=== PATIENT | female | born 1970 | race Two or more races ===

== ENCOUNTER 2020-03-28 | Inpatient (IN) | payer BC ==
[2020-03-28] MEDS ORDERED: Labetalol 100 MG/20 ML MDV IVPUSH ONE ×2 (00:09→00:51)
--- NOTE | 2020-03-28 00:16 | EDM.PDOC ---
ED HPI GENERAL MEDICAL PROBLEM - General Stated Complaint: STROKE CODE Time Seen by Provider: 03/28/20 00:07 Source of Information: Reports: Patient History Limitations: Reports: No Limitations, Language Barrier - History of Present Illness Duration: Hour(s): (12) Location: Reports: Head, Neck Quality: Reports: Ache, Throbbing Severity: Severe Improves with: Reports: None Worsens with: Reports: None Associated Symptoms: Reports: Headaches, Other (Left-sided facial droop.) neck Pain Score (Numeric/FACES): 10 chest Pain Score (Numeric/FACES): 4 - Related Data Allergies Allergy/AdvReac Type Severity Reaction Status Date / Time No Known Allergies Allergy Verified 03/28/20 00:20 Home Meds: Home Meds Losartan [Cozaar] 0 mg PO DAILY 03/28/20 [History] hydroCHLOROthiazide [Hydrochlorothiazide] 0 mg PO DAILY 03/28/20 [History] ED ROS GENERAL - Review of Systems Review Of Systems: Comprehensive ROS is negative, except as noted in HPI. ED EXAM, NEURO - Physical Exam Exam: See Below Exam Limited By: Language Barrier General Appearance: Alert, No Apparent Distress Throat/Mouth: Normal Inspection Head Exam: Atraumatic, Normocephalic Neck: Normal Inspection, Supple, Limited Range of Motion, Other (Muscle spasm consistent with tension headache.) Respiratory/Chest: No Respiratory Distress, Lungs Clear, Normal Breath Sounds Cardiovascular: Regular Rate, Rhythm, No JVD, No Murmur GI/Abdominal: Normal Bowel Sounds, Soft, Non-Tender Neurological: Alert, Oriented x 3, Other (Sided facial droop with mild proptosis. Forehead is spared. No deviation of the tongue.) Back Exam: Normal Inspection Extremities: Normal Inspection Psychiatric: Normal Affect Skin Exam: Warm, Dry EKG INTERPRETATION Rhythm: NSR QRS: Normal ST-T: Normal Course - Vital Signs Text/Narrative:: CT scan of patient's brain shows no acute disease. EKG shows review normal sinus rhythm no ST or T wave changes. Lab work is normal. Patient's blood pressure remains very elevated. She presented with a blood pressure of 250/ 149. She received some IV labetalol 20 mg which caused her pressure to go down to 159/110. Patient blood pressure then started to rise and was 180/115 when she received a second dose of labetalol. Her pressure has not changed and is currently 173/113 at this time we are starting her on a labetalol drip. Patient will be admitted to the ICU. I am expecting an MRI scan to be done tomorrow. Patient's family is aware. Last Recorded V/S: Last Vital Signs Temp 36.6 C 03/28/20 00:07 Pulse 69 03/28/20 00:45 Resp 17 03/28/20 00:45 BP 180/115 H 03/28/20 00:45 Pulse Ox 97 03/28/20 00:45 - Orders/Labs/Meds Orders: Active Orders 24 hr Category Date Time Status Admission Status [Patient Status] [ADT] Stat ADT 03/28/20 01:34 Ordered EKG 12 Lead [EKG Documentation Completion] [RC] STAT Care 03/28/20 00:08 Active Labetalol 100 MG in Normal Saline @ 0.5 MG/MIN(100ml) Med 03/28/20 01:45 Ordered Labetalol [Normodyne] 100 mg Sodium Chloride 0.9% [Normal Saline] 80 ml IV TITRATE Medication Orders Labetalol HCl 100 mg/ Sodium (Chloride) 100 mls @ 30 mls/hr IV TITRATE JORDY; Protocol Labs: Laboratory Tests 03/28/20 03/28/20 03/28/20 Range/Units 00:03 00:03 00:03 WBC 10.31 (4.0-11.0) K/uL RBC 5.01 (4.30-5.90) M/uL Hgb 14.5 (12.0-16.0) g/dL Hct 43.0 (36.0-46.0) % MCV 85.8 (80.0-98.0) fL MCH 28.9 (27.0-32.0) pg MCHC 33.7 (31.0-37.0) g/dL RDW Std Deviation 40.0 (28.0-62.0) fl RDW Coeff of All 13 (11.0-15.0) % Plt Count 318 (150-400) K/uL MPV 10.40 (7.40-12.00) fL Neut % (Auto) 57.4 (48.0-80.0) % Lymph % (Auto) 29.5 (16.0-40.0) % [place] % (Auto) 8.9 (0.0-15.0) % Eos % (Auto) 3.7 (0.0-7.0) % Baso % (Auto) 0.5 (0.0-1.5) % Neut # (Auto) 5.9 H (1.4-5.7) K/uL Lymph # (Auto) 3.0 H (0.6-2.4) K/uL [place] # (Auto) 0.9 H (0.0-0.8) K/uL Eos # (Auto) 0.4 (0.0-0.7) K/uL Baso # (Auto) 0.1 (0.0-0.1) K/uL Nucleated RBC % 0.0 /100WBC Nucleated RBCs # 0 K/uL Sodium 138 (136-145) mmol/L Potassium 3.1 L (3.5-5.1) mmol/L Chloride 102 (98-107) mmol/L Carbon Dioxide 32.3 H (21.0-32.0) mmol/L BUN 21 H (7.0-18.0) mg/dL Creatinine 1.0 (0.6-1.0) mg/dL Est Cr Clr Drug Dosing TNP Estimated GFR (MDRD) 58.7 ml/min Glucose 98 (74-106) mg/dL Calcium 8.6 (8.5-10.1) mg/dL Total Bilirubin 0.1 L (0.2-1.0) mg/dL AST 18 (15-37) IU/L ALT 23 (14-63) IU/L Alkaline Phosphatase 80 (46-116) U/L Troponin I < 0.050 (0.000-0.056) ng/mL Total Protein 8.0 (6.4-8.2) g/dL Albumin 3.7 (3.4-5.0) g/dL Globulin 4.3 H (2.6-4.0) g/dL Albumin/Globulin Ratio 0.9 (0.9-1.6) Meds: Medications Generic Name Dose Route Start Last Admin Trade Name Freq PRN Reason Stop Dose Admin Labetalol HCl 100 mg/ Sodium 100 mls @ 30 mls/hr 03/28/20 01:45 Chloride IV TITRATE JORDY Protocol 0.5 MG/MIN Discontinued Medications Generic Name Dose Route Start Last Admin Trade Name Freq PRN Reason Stop Dose Admin Aspirin 325 mg 03/28/20 01:00 03/28/20 01:10 Aspirin PO 03/28/20 01:01 325 mg ONETIME ONE Administration Hydromorphone HCl 1 mg 03/28/20 00:51 03/28/20 01:01 Dilaudid IVPUSH 03/28/20 00:52 1 mg ONETIME ONE Administration Labetalol HCl 20 mg 03/28/20 00:09 03/28/20 00:20 Normodyne IVPUSH 03/28/20 00:10 20 mg ONETIME ONE Administration Protocol Labetalol HCl 20 mg 03/28/20 00:51 03/28/20 00:57 Normodyne IVPUSH 03/28/20 00:52 20 mg ONETIME ONE Administration Protocol Ondansetron HCl Confirm 03/28/20 01:17 03/28/20 01:32 Zofran Administered 03/28/20 01:18 Not Given Dose 4 mg .ROUTE .STK-MED ONE Ondansetron HCl 4 mg 03/28/20 01:27 03/28/20 01:32 Zofran IVPUSH 03/28/20 01:28 4 mg ONETIME ONE Administration Departure - Departure Time of Disposition: 01:42 Disposition: Admitted As Inpatient 65 Condition: Good Clinical Impression: CVA (cerebral vascular accident), Hypertensive emergency - Discharge Information Referrals: Mima Guy MD [Primary Care Provider] - Sepsis Event Note - Focused Exam Vital Signs: Vital Signs Temp Pulse Resp BP Pulse Ox 03/28/20 00:45 69 17 180/115 H 97 03/28/20 00:30 69 18 159/110 H 98 03/28/20 00:15 69 18 206/134 H 98 03/28/20 00:07 36.6 C 86 18 250/149 H 100 Date Exam was Performed: 03/28/20 Time Exam was Performed: 01:43 - My Orders Last 24 Hours: My Active Orders 03/28/20 00:08 EKG 12 Lead [EKG Documentation Completion] [RC] STAT 03/28/20 01:34 Admission Status [Patient Status] [ADT] Stat 03/28/20 01:45 Labetalol 100 MG in Normal Saline @ 0.5 MG/MIN(100ml) Labetalol [Normodyne] 100 mg Sodium Chloride 0.9% [Normal Saline] 80 ml IV TITRATE - Assessment/Plan Last 24 Hours: My Active Orders 03/28/20 00:08 EKG 12 Lead [EKG Documentation Completion] [RC] STAT 03/28/20 01:34 Admission Status [Patient Status] [ADT] Stat 03/28/20 01:45 Labetalol 100 MG in Normal Saline @ 0.5 MG/MIN(100ml) Labetalol [Normodyne] 100 mg Sodium Chloride 0.9% [Normal Saline] 80 ml IV TITRATE
--- NOTE | 2020-03-28 00:29 | CT ---
INDICATION: Stroke symptoms. Dizziness. TECHNIQUE: CT head without contrast. COMPARISON: None. FINDINGS: CSF spaces: Within normal limits for age. Brain parenchyma and extra-axial spaces: The vera-white differentiation is normal. No sign of mass, hemorrhage, or midline shift. No extra-axial fluid collection. Skull base and calvarium: The visualized paranasal sinuses and mastoid air cells demonstrate no acute or significant findings. The visualized orbits are grossly unremarkable. No skull fractures. IMPRESSION: Unremarkable noncontrast head CT. No sign of CVA or other significant finding. Please note that all CT scans at this facility use dose modulation, iterative reconstruction, and/or weight-based dosing when appropriate to reduce radiation dose to as low as reasonably achievable. Dictated by Matt Christensen MD @ Mar 28 2020 12:22AM Signed by Dr. Matt Christensen @ Mar 28 2020 12:28AM
[2020-03-28 00:32] LABS: BLOOD UREA NITROGEN,BUN 21 mg/dL (7.0-18.0); CARBON DIOXIDE,CO2 32.3 mmol/L (21.0-32.0); CHLORIDE,CL 102 mmol/L (98-107); GLUCOSE RANDOM 98 mg/dL (74-106); POTASSIUM,K 3.1 mmol/L (3.5-5.1); SODIUM,NA 138 mmol/L (136-145)
[2020-03-28] MEDS ORDERED: HYDROmorphone 2 MG/ML Syringe IVPUSH ONE (00:51)
[2020-03-28] MEDS ORDERED: Aspirin 325 MG Tab PO ONE (01:00)
[2020-03-28] MEDS ORDERED: Ondansetron 4 MG/2 ML SDV ONE ×2 (01:17→01:52)
[2020-03-28] MEDS ORDERED: Ondansetron 4 MG/2 ML SDV IVPUSH ONE ×2 (01:27→01:55)
[2020-03-28] MEDS ORDERED: Labetalol 100 MG in Sodium Chloride 0.9% 80 ML IV SCH (01:45)
[2020-03-28] MEDS ORDERED: Ondansetron 4 MG/2 ML SDV IVPUSH PRN (04:17)
[2020-03-28] MEDS ORDERED: Carboxymethylcellulose Sodium 0.5% Ophth Soln 0.4 ML UD Box of 30 EYEBOTH PRN (04:18)
[2020-03-28] MEDS ORDERED: Labetalol 100 MG/20 ML MDV IVPUSH PRN (04:20)
[2020-03-28 06:31] LABS: HEMOGLOBIN A1C 5.5 % (4.5-6.2)
[2020-03-28 06:41] LABS: BLOOD UREA NITROGEN,BUN 21 mg/dL (7.0-18.0); CARBON DIOXIDE,CO2 31.3 mmol/L (21.0-32.0); CHLORIDE,CL 100 mmol/L (98-107); GLUCOSE RANDOM 125 mg/dL (74-106); POTASSIUM,K 3.2 mmol/L (3.5-5.1); SODIUM,NA 139 mmol/L (136-145)
[2020-03-28] MEDS ORDERED: Potassium Chloride 20 MEQ Tab.ER PO ONE (07:58)
--- NOTE | 2020-03-28 08:02 | PCM.HP.2 ---
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 This started earlier in the day and has progressively worsened. She denies fevers or chills, no chest pain or SOB. No abdominal pain or dysuria. No constipation or diarrhea. She reports mild R sided neck pain that has been present for 3 or so days. She denies visual concerns. Denies swallowing concerns. No lightheadedness of dizziness. No concerns with ambulation. She denies alcohol use, no recreational drug use and no tobacco use. In the ED CBC WNL, BUN 21, Cr 1.0, K+3.1, A1c 5.5 TSH 2.38, head CT negative. BP were elevated 240/140s she was given labetalol 20 mg x 2, BP improved to 180/ 90s She was placed on telemetry and admitted for hypertensive emergency, possible TIA or CVA. 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 No organisms found. Malignancy ruled out. neck Pain Score (Numeric/FACES): 9 chest Pain Score (Numeric/FACES): 0 - Related Data Allergies/Adverse Reactions: Allergies Allergy/AdvReac Type Severity Reaction Status Date / Time No Known Allergies Allergy Verified 03/28/20 08:47 Home Medications: Home Meds Losartan [Cozaar] 100 mg PO DAILY 03/28/20 [History] hydroCHLOROthiazide [Hydrochlorothiazide] 25 mg PO DAILY 03/28/20 [History] Past Medical History HEENT History: Reports: Impaired Vision, Other (See Below) Other HEENT History: wears glasses Cardiovascular History: Reports: Hypertension. Denies: Afib, Blood Clots/VTE/ DVT, CAD, [place] Respiratory History: Reports: None, Other (See Below) (necrotizing granuloma) Genitourinary History: Reports: None. 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 Denies: CVA, TIA Psychiatric History: Reports: None Endocrine/Metabolic History: Denies: Diabetes, Type II, Obesity/BMI 30+ - Past Surgical History HEENT Surgical History: Reports: None Cardiovascular Surgical History: Reports: None Respiratory Surgical History: Reports: Lung Biopsies, Other (See Below) Other Respiratory Surgeries/Procedures: states lung biopsy came back negative Social & Family History - Family History Family Medical History: Noncontributory Cardiac: Reports: Hypertension, NV Psychiatric: Reports: Anxiety, Depression Endocrine/Metabolic: Reports: Diabetes, type II - Tobacco Use Smoking Status *Q: Never Smoker Second Hand Smoke Exposure: No - Caffeine Use Caffeine Use: Reports: Coffee - Alcohol Use Alcohol Use History: No - Recreational Drug Use Recreational Drug Use: No - Living Situation & Occupation Living situation: Reports: Occupation: Employed H&P Review of Systems - Review of Systems: Review Of Systems: See Below General: Reports: No Symptoms. Denies: Chills, Malaise, Weakness HEENT: Reports: Other (dry eye, unable to closed L eye). Denies: Eye Pain, Headaches, Visual Changes Pulmonary: Reports: No Symptoms. Denies: Shortness of Breath, Cough, Sputum Cardiovascular: Reports: No Symptoms Gastrointestinal: Reports: No Symptoms. Denies: Abdominal Pain, Black Stool, Bloody Stool, Nausea, Vomiting Genitourinary: Reports: No Symptoms. Denies: Dysuria, Frequency Musculoskeletal: Reports: Neck Pain (r sided lateral neck pain). Denies: Shoulder Pain, Back Pain Neurological: Denies: Change in Speech Hematologic/Lymphatic: Reports: No Symptoms Immunologic: Reports: No Symptoms Exam - Exam Exam: See Below - Vital Signs Vital Signs: Last Vital Signs Temp 97.3 F 03/28/20 07:41 Pulse 72 03/28/20 07:41 Resp 16 03/28/20 07:41 BP 106/56 L 03/28/20 07:41 Pulse Ox 95 03/28/20 07:41 Weight: 65.7 kg - Exam General: Alert, Oriented, Cooperative HEENT: Conjunctiva Clear, Posterior Pharynx Clear, Pupils Reactive, Other ( unable to blink L eye or close left eye) Lungs: Clear to Auscultation, Normal Respiratory Effort Cardiovascular: Regular Rate, Regular Rhythm, Normal S1, Normal S2. No: Systolic Murmur GI/Abdominal Exam: Normal Bowel Sounds, Soft, Non-Tender Extremities: Normal Inspection, Normal Range of Motion, Non-Tender, No Pedal Edema Neurological: Strength Equal Bilateral, Normal Gait, Normal Speech Neuro Extensive - Mental Status: Alert, Oriented x3, Normal Mood/Affect Neuro Extensive - Motor, Sensory, Reflexes: Normal Gait, Facial palsy (L) Psychiatric: Alert, Normal Affect, Normal Mood - Patient Data Lab Results Last 24 hrs: Laboratory Results - last 24 hr 03/28/20 03/28/20 03/28/20 Range/Units 00:03 00:03 00:03 WBC 10.31 (4.0-11.0) K/uL RBC 5.01 (4.30-5.90) M/uL Hgb 14.5 (12.0-16.0) g/dL Hct 43.0 (36.0-46.0) % MCV 85.8 (80.0-98.0) fL MCH 28.9 (27.0-32.0) pg MCHC 33.7 (31.0-37.0) g/dL RDW Std Deviation 40.0 (28.0-62.0) fl RDW Coeff of All 13 (11.0-15.0) % Plt Count 318 (150-400) K/uL MPV 10.40 (7.40-12.00) fL Neut % (Auto) 57.4 (48.0-80.0) % Lymph % (Auto) 29.5 (16.0-40.0) % [place] % (Auto) 8.9 (0.0-15.0) % Eos % (Auto) 3.7 (0.0-7.0) % Baso % (Auto) 0.5 (0.0-1.5) % Neut # (Auto) 5.9 H (1.4-5.7) K/uL Lymph # (Auto) 3.0 H (0.6-2.4) K/uL [place] # (Auto) 0.9 H (0.0-0.8) K/uL Eos # (Auto) 0.4 (0.0-0.7) K/uL Baso # (Auto) 0.1 (0.0-0.1) K/uL Nucleated RBC % 0.0 /100WBC Nucleated RBCs # 0 K/uL Sodium 138 (136-145) mmol/L Potassium 3.1 L (3.5-5.1) mmol/L Chloride 102 (98-107) mmol/L Carbon Dioxide 32.3 H (21.0-32.0) mmol/L BUN 21 H (7.0-18.0) mg/dL Creatinine 1.0 (0.6-1.0) mg/dL Est Cr Clr Drug Dosing TNP Estimated GFR (MDRD) 58.7 ml/min Glucose 98 (74-106) mg/dL Hemoglobin A1c (4.5-6.2) % Calcium 8.6 (8.5-10.1) mg/dL Phosphorus (2.6-4.7) mg/dL Magnesium (1.8-2.4) mg/dL Total Bilirubin 0.1 L (0.2-1.0) mg/dL AST 18 (15-37) IU/L ALT 23 (14-63) IU/L Alkaline Phosphatase 80 (46-116) U/L Troponin I < 0.050 (0.000-0.056) ng/mL Total Protein 8.0 (6.4-8.2) g/dL Albumin 3.7 (3.4-5.0) g/dL Globulin 4.3 H (2.6-4.0) g/dL Albumin/Globulin Ratio 0.9 (0.9-1.6) TSH 3rd Generation (0.36-3.74) uIU/mL 03/28/20 03/28/20 03/28/20 Range/Units 06:03 06:03 06:03 WBC 12.01 H (4.0-11.0) K/uL RBC 4.73 (4.30-5.90) M/uL Hgb 13.6 (12.0-16.0) g/dL Hct 40.4 (36.0-46.0) % MCV 85.4 (80.0-98.0) fL MCH 28.8 (27.0-32.0) pg MCHC 33.7 (31.0-37.0) g/dL RDW Std Deviation 39.6 (28.0-62.0) fl RDW Coeff of All 13 (11.0-15.0) % Plt Count 311 (150-400) K/uL MPV 10.30 (7.40-12.00) fL Neut % (Auto) 85.5 H (48.0-80.0) % Lymph % (Auto) 11.1 L (16.0-40.0) % [place]on % (Auto) 2.8 (0.0-15.0) % Eos % (Auto) 0.4 (0.0-7.0) % Baso % (Auto) 0.2 (0.0-1.5) % Neut # (Auto) 10.3 H (1.4-5.7) K/uL Lymph # (Auto) 1.3 (0.6-2.4) K/uL [place]on # (Auto) 0.3 (0.0-0.8) K/uL Eos # (Auto) 0.1 (0.0-0.7) K/uL Baso # (Auto) 0.0 (0.0-0.1) K/uL Nucleated RBC % 0.0 /100WBC Nucleated RBCs # 0 K/uL Sodium 139 (136-145) mmol/L Potassium 3.2 L (3.5-5.1) mmol/L Chloride 100 (98-107) mmol/L Carbon Dioxide 31.3 (21.0-32.0) mmol/L BUN 21 H (7.0-18.0) mg/dL Creatinine 0.9 (0.6-1.0) mg/dL Est Cr Clr Drug Dosing 53.71 Estimated GFR (MDRD) > 60.0 ml/min Glucose 125 H (74-106) mg/dL Hemoglobin A1c 5.5 (4.5-6.2) % Calcium 8.6 (8.5-10.1) mg/dL Phosphorus 4.2 (2.6-4.7) mg/dL Magnesium 2.2 (1.8-2.4) mg/dL Total Bilirubin (0.2-1.0) mg/dL AST (15-37) IU/L ALT (14-63) IU/L Alkaline Phosphatase (46-116) U/L Troponin I (0.000-0.056) ng/mL Total Protein (6.4-8.2) g/dL Albumin (3.4-5.0) g/dL Globulin (2.6-4.0) g/dL Albumin/Globulin Ratio (0.9-1.6) TSH 3rd Generation 2.38 (0.36-3.74) uIU/mL Result Diagrams: 03/28/20 06:03 03/28/20 06:03 Sepsis Event Note - Evaluation Sepsis Screening Result: No Definite Risk - Focused Exam Vital Signs: Vital Signs Temp Pulse Resp BP Pulse Ox 03/28/20 07:41 97.3 F 72 16 106/56 L 95 03/28/20 06:07 98.2 F 67 16 127/77 92 L 03/28/20 05:21 74 17 120/73 95 03/28/20 05:20 97 03/28/20 04:00 97.5 F 64 18 181/97 H 95 03/28/20 03:25 97.5 F 60 18 165/94 H 95 03/28/20 02:45 62 17 155/103 H 96 03/28/20 02:30 64 18 175/115 H 97 03/28/20 02:15 58 L 17 142/101 H 96 03/28/20 02:00 60 17 142/99 H 96 03/28/20 01:45 61 17 145/97 H 96 03/28/20 01:30 63 17 151/106 H 96 03/28/20 01:15 66 17 176/113 H 96 03/28/20 01:00 78 18 159/113 H 97 03/28/20 00:45 69 17 180/115 H 97 03/28/20 00:30 69 18 159/110 H 98 03/28/20 00:15 69 18 206/134 H 98 03/28/20 00:07 98 F 86 18 250/149 H 100 Date Exam was Performed: 03/28/20 Time Exam was Performed: 11:02 - Problem List (1) HTN (hypertension) SNOMED Code(s): 97745561 ICD Code: I10 - ESSENTIAL (PRIMARY) HYPERTENSION Status: Acute Current Visit: Yes (2) TIA (transient ischemic attack) SNOMED Code(s): 246777721 ICD Code: G45.9 - TRANSIENT CEREBRAL ISCHEMIC ATTACK, UNSPECIFIED Status: Suspected Current Visit: Yes (3) Hypertensive emergency SNOMED Code(s): 849312260897622 ICD Code: I16.1 - HYPERTENSIVE EMERGENCY Status: Acute Current Visit: Yes (4) Hypokalemia SNOMED Code(s): 09872730 ICD Code: E87.6 - HYPOKALEMIA Status: Acute Current Visit: Yes Problem List Initiated/Reviewed/Updated: Yes Orders Last 24hrs: Active Orders 24 hr Category Date Time Status Admission Status [Patient Status] [ADT] Stat ADT 03/28/20 01:34 Active Activity as Tolerated [RC] .Routine Care 03/28/20 04:26 Active Oxygen Therapy [RC] PRN Care 03/28/20 04:27 Active Pulse Oximetry [RC] PRN Care 03/28/20 04:28 Active Swallow Screen [Nursing Bedside Swallow Screen] [RC] Care 03/28/20 08:01 Ordered ASDIRECTED Telemetry Monitoring [Cardiac Monitoring] [RC] Q8H Care 03/28/20 02:40 Active Vital Signs [RC] Q4HR Care 03/28/20 04:25 Active Clear Liquid Diet [DIET] Diet 03/28/20 Breakfast Active Ang Head wo Cont [MR] Urgent Exams 03/28/20 07:52 Ordered Ang Neck w Cont [MR] Urgent Exams 03/28/20 07:52 Ordered Brain w wo Cont [MR] Urgent Exams 03/28/20 07:52 Ordered Brain wo Cont [MR] Routine Exams 03/28/20 04:30 Stop Req Echo Comp wo Cont [US] Routine Exams 03/28/20 04:24 Ordered MRA Head Without Contrast [Ang Head wo Cont] [MR] Exams 03/28/20 04:28 Stop Req Routine CORONAVIRUS COVID-19 PCR PHL Urgent Lab 03/28/20 07:58 Ordered LIPID PANEL [CHEM] Routine Lab 03/28/20 07:54 Ordered Aspirin Med 03/28/20 09:00 Ordered 81 mg PO DAILY Carboxymethylcellulose Sodium [Refresh Plus 0.5%] Med 03/28/20 04:18 Active 1 each EYEBOTH BID PRN Labetalol [Normodyne] Med 03/28/20 04:20 Active 10 mg IVPUSH Q4H PRN Ondansetron [Zofran] Med 03/28/20 04:17 Active 4 mg IVPUSH Q4H PRN Medication Orders Artificial Tears (Refresh Plus 0.5%) 1 each EYEBOTH BID PRN PRN Reason: Dry Eyes Last Admin: 03/28/20 05:35 Dose: 1 each Aspirin (Aspirin) 81 mg PO DAILY JORDY Labetalol HCl (Normodyne) 10 mg IVPUSH Q4H PRN PRN Reason: Hypertension Ondansetron HCl (Zofran) 4 mg IVPUSH Q4H PRN PRN Reason: Nausea/Vomiting Assessment/Plan Comment:: THis 49 year old female admitted with hypertensive urgency, possible TIA, CVA to be ruled out. 1. L sided facial numbness tingling, TIA and rule out CVA - Head CT negative - MRI brain and MRA head and neck to be obtained today - TTE pending - Lipid panel revealed Total cholesterol 198, LDL 141, HDL 45 triglycerides 61 - A1c 5.5 - TSH 2.38 - Permissive HTN, Labetalol PRN for BP over 180/100 - COVID-19- negative - Consult Dr Marrufo, Neurology to evaluate - Consult ST due to tongue numbness. No swallowing concerns. - No need for PT/OT evaluations as she is not having difficulty with limb weakness or gait instability - Non-smoker 2. HTN: - Improved, allowing permissive HTN for now. Hold Losartan and HCTZ 3. Hypokalemia: - replace PO today, recheck in am. VTE prophylaxis: SCDs Dispo: 1-2 days pending improvement and evaluations - Mortality Measure Prognosis:: Good
[2020-03-28] MEDS ORDERED: Sodium Chloride 0.9% 2.5 ML Syringe FLUSH PRN (08:03)
[2020-03-28] MEDS ORDERED: Sodium Chloride 0.9% 10 ML Syringe FLUSH PRN (08:03)
[2020-03-28] MEDS ORDERED: Hydrochlorothiazide 25 MG Tab PO SCH (09:00)
[2020-03-28] MEDS ORDERED: Losartan 50 MG Tab PO SCH (09:00)
[2020-03-28] MEDS ORDERED: Gadobenate Dimeglumine 529 MG/ML 20 ML SDV IVPUSH STA (09:13)
[2020-03-28] MEDS: Aspirin 81 MG Tab.Chew PO SCH (10:17)
[2020-03-28] MEDS: Acetaminophen 325 MG Tab PO PRN ×2 (10:46→15:08)
--- NOTE | 2020-03-28 11:14 | MR ---
MR angiogram of neck Technique: MR angiogram study was obtained centered to the neck. Intravenous contrast was utilized. Findings: Brachiocephalic and subclavian arteries appear patent. Common carotid arteries are patent on both sides. Internal carotid arteries show no focal stenosis. Bandlike defect is noted within the left proximal external carotid artery which is most likely artifact. Left external carotid artery is otherwise unremarkable. Right external carotid artery appears normal. Vertebral arteries are patent into the basilar artery. Impression: 1. Bandlike defect within the proximal left external carotid artery which is most likely artifact. 2. Other portions of the MR angiogram study of the neck appear unremarkable. Diagnostic code #2 This report was dictated in MDT
--- NOTE | 2020-03-28 11:22 | MR ---
MR angiogram of brain Technique: Multiple T2 MR angiogram sequences were obtained centered of the [place]. Multiple MIP images were then obtained. Findings: Basilar artery and posterior cerebral arteries are patent. Distal internal carotid arteries are patent. Proximal left middle cerebral artery shows some narrowing up to about 90 percent. There is an equivocal area of mass-effect at this level measuring about 4 mm. Difficult to exclude a thrombosed aneurysm or treated aneurysm. Other portions of the middle cerebral artery are patent. Internal cerebral arteries are patent. Impression: 1. Focal narrowing within the proximal left middle cerebral artery up to about 90 percent. Small equivocal adjacent finding measuring 4 mm. Difficult to exclude a thrombosed aneurysm or treated aneurysm. This may also be artifact. If patient's clinical symptoms remain stable, recommend follow-up study in one month to see if findings persist. 2. Other portions of the MR angiogram study appear unremarkable which are centered to the [place]. Diagnostic code #3 This report was dictated in MDT
--- NOTE | 2020-03-28 11:34 | MR ---
MRI brain (without and with intravenous contrast) Technique: T1 sagittal and coronal; T1, T2, FLAIR and diffusion axial; T1 fat-suppressed postcontrast axial, sagittal and coronal images were obtained. Comparison: Previous correlated with previous MR angiogram study performed on the same day as well as head CT exam of 03/28/20. Findings: Ventricles along with basal cisterns and sulci over the convexities are within normal limits for the patient's age. Normal signal void is seen within the major cerebral arteries within the skull base. No discrete abnormality is appreciated in the area of narrowing within the proximal left middle cerebral artery as noted on the MR angiogram study. Nothing is seen to correlate to a thrombosed or treated aneurysm. Area of narrowing within the proximal left middle cerebral artery seen on previous MR angiogram is most likely due to atherosclerotic change. Small areas of increased signal are scattered within the subcortical and periventricular white matter most likely representing minimal small vessel ischemic demyelination change. No other abnormal signal is seen within the brain parenchyma. No acute diffusion abnormalities are seen. No abnormal enhancement is seen within the brain parenchyma. Impression: 1. Minimal areas of increased signal within the subcortical and periventricular white matter most likely due to minimal small vessel ischemic demyelination change. 2. No findings are seen on this exam to indicate thrombosed aneurysm or treated aneurysm next to the proximal left middle cerebral artery as questioned on MR angiogram study. Narrowing on MR angiogram study is most likely due to atherosclerotic change although repeat MR angiogram study of the brain could be considered to confirm findings persist as a real stenosis. 3. No additional abnormality is seen on MR angiogram study of the brain. Diagnostic code #3 This report was dictated in MDT
--- NOTE | 2020-03-28 12:54 | PCM.CONS ---
H&P History of Present Illness - General Date of Service: 03/28/20 Admit Problem/Dx: Admission Diagnosis/Problem Admission Diagnosis/Problem Hypertension Source of Information: Patient History Limitations: Reports: Language Barrier - History of Present Illness Initial Comments - Free Text/Narative: Prior to coming to the ED, she had been having pain in the neck vein on the right side (points to posterior lateral neck). She endorses having had this before associated with high blood pressure. Yesterday, she had nausea. Yesterday afternoon, she developed droop on the left side of her face. Today, she notes that she is drooling on the left side of her mouth. Her left eye is painful/dry. No recent fevers, chills, cough, SOB, ear pain, rash. In ED, BP were 240s/140 Medical history includes HTN. Her father had DE. No tobacco use. Labs 03/28/2020 LDL 141, TSH 2.38, A1c 5.5 MRA head and neck gap in signal in the left MCA, artifact vs. stenosis, MRI brain nonspecific T2 hyperintense foci likely mild small vessel changes neck Pain Score (Numeric/FACES): 9 chest Pain Score (Numeric/FACES): 0 - Related Data Allergies/Adverse Reactions: Allergies Allergy/AdvReac Type Severity Reaction Status Date / Time No Known Allergies Allergy Verified 03/28/20 08:47 Home Medications: Home Meds Losartan [Cozaar] 100 mg PO DAILY 03/28/20 [History] hydroCHLOROthiazide [Hydrochlorothiazide] 25 mg PO DAILY 03/28/20 [History] Past Medical History HEENT History: Reports: Impaired Vision, Other (See Below) Other HEENT History: wears glasses Cardiovascular History: Reports: Hypertension. Denies: Afib, Blood Clots/VTE/ DVT, CAD, DE Respiratory History: Reports: None, Other (See Below) (necrotizing granuloma) Genitourinary History: Reports: None. 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 Denies: CVA, TIA Psychiatric History: Reports: None Endocrine/Metabolic History: Denies: Diabetes, Type II, Obesity/BMI 30+ - Past Surgical History HEENT Surgical History: Reports: None Cardiovascular Surgical History: Reports: None Respiratory Surgical History: Reports: Lung Biopsies, Other (See Below) Other Respiratory Surgeries/Procedures: states lung biopsy came back negative Social & Family History - Family History Family Medical History: Noncontributory Cardiac: Reports: Hypertension, DE Psychiatric: Reports: Anxiety, Depression Endocrine/Metabolic: Reports: Diabetes, type II - Tobacco Use Smoking Status *Q: Never Smoker Second Hand Smoke Exposure: No - Caffeine Use Caffeine Use: Reports: Coffee - Recreational Drug Use Recreational Drug Use: No - Living Situation & Occupation Living situation: Reports: Occupation: Employed H&P Review of Systems - Review of Systems: Review Of Systems: Comprehensive ROS is negative, except as noted in HPI. Exam - Exam Exam: See Below - Vital Signs Vital Signs: Last Vital Signs Temp 36.6 C 03/28/20 10:20 Pulse 65 03/28/20 10:20 Resp 16 03/28/20 10:20 BP 160/96 H 03/28/20 10:20 Pulse Ox 97 03/28/20 10:20 Weight: 65.7 kg - Exam Physical Exam Comments:: Constitutional: No acute distress Psychiatric: Mood/Affect: normal/appropriate Neurological: Mental Status: General: Normal activity, good hygiene, appropriate appearance. Level of consciousness: Awake, alert. Orientation: Oriented to person, place, time and situation. Concentration/Attention Span: Normal. Comprehension/Praxis: Able to perform a three step command. Fund of Knowledge/memory: Adequate recent and remote recall. Language: Fluent, some comprehension difficulties suspected due to Sinhala not first language. Thought Content: Normal. Insight/Judgement: Normal. Cranial Nerves: Pupils equally round and reactive to light. Visual louis full to confrontation. Gaze conjugate, EOMI. Sensation intact and symmetric to light touch. Left facial weakness moderate eye closure weakness, asymmetric forehead lines, mild droop left angle of mouth and incomplete closure when drinking from straw. . Palate elevates symmetrically. Normal shrug bilaterally. Tongue protrudes midline Motor: Normal tone in all groups. No drift. Power is 5/5 throughout proximal and distal muscles. Sensation: Sensation is intact to pinprick, vibratory sense and proprioception. Coordination: Finger to nose, heel to peoples and rapid alternating movements are intact. Gait: Normal gait Eyes: non icteric, Mouth: moist mucus membranes Cardiovascular: RRR Respiratory: clear lungs Skin: no visible rash - Patient Data Lab Results Last 24 hrs: Laboratory Results - last 24 hr 03/28/20 03/28/20 03/28/20 Range/Units 00:03 00:03 00:03 WBC 10.31 (4.0-11.0) K/uL RBC 5.01 (4.30-5.90) M/uL Hgb 14.5 (12.0-16.0) g/dL Hct 43.0 (36.0-46.0) % MCV 85.8 (80.0-98.0) fL MCH 28.9 (27.0-32.0) pg MCHC 33.7 (31.0-37.0) g/dL RDW Std Deviation 40.0 (28.0-62.0) fl RDW Coeff of All 13 (11.0-15.0) % Plt Count 318 (150-400) K/uL MPV 10.40 (7.40-12.00) fL Neut % (Auto) 57.4 (48.0-80.0) % Lymph % (Auto) 29.5 (16.0-40.0) % [place] % (Auto) 8.9 (0.0-15.0) % Eos % (Auto) 3.7 (0.0-7.0) % Baso % (Auto) 0.5 (0.0-1.5) % Neut # (Auto) 5.9 H (1.4-5.7) K/uL Lymph # (Auto) 3.0 H (0.6-2.4) K/uL [place] # (Auto) 0.9 H (0.0-0.8) K/uL Eos # (Auto) 0.4 (0.0-0.7) K/uL Baso # (Auto) 0.1 (0.0-0.1) K/uL Nucleated RBC % 0.0 /100WBC Nucleated RBCs # 0 K/uL Sodium 138 (136-145) mmol/L Potassium 3.1 L (3.5-5.1) mmol/L Chloride 102 (98-107) mmol/L Carbon Dioxide 32.3 H (21.0-32.0) mmol/L BUN 21 H (7.0-18.0) mg/dL Creatinine 1.0 (0.6-1.0) mg/dL Est Cr Clr Drug Dosing TNP Estimated GFR (MDRD) 58.7 ml/min Glucose 98 (74-106) mg/dL Hemoglobin A1c (4.5-6.2) % Calcium 8.6 (8.5-10.1) mg/dL Phosphorus (2.6-4.7) mg/dL Magnesium (1.8-2.4) mg/dL Total Bilirubin 0.1 L (0.2-1.0) mg/dL AST 18 (15-37) IU/L ALT 23 (14-63) IU/L Alkaline Phosphatase 80 (46-116) U/L Troponin I < 0.050 (0.000-0.056) ng/mL Total Protein 8.0 (6.4-8.2) g/dL Albumin 3.7 (3.4-5.0) g/dL Globulin 4.3 H (2.6-4.0) g/dL Albumin/Globulin Ratio 0.9 (0.9-1.6) Triglycerides (0-200) mg/dL Cholesterol (50-200) mg/dL LDL Cholesterol, Calc (60-180) mg/dL VLDL Cholesterol (5-55) mg/dL HDL Cholesterol (40-60) mg/dL Cholesterol/HDL Ratio (3.3-6.0) TSH 3rd Generation (0.36-3.74) uIU/mL SARS-CoV-2 RNA (RT-PCR) (NEGATIVE) 03/28/20 03/28/20 03/28/20 Range/Units 06:03 06:03 06:03 WBC 12.01 H (4.0-11.0) K/uL RBC 4.73 (4.30-5.90) M/uL Hgb 13.6 (12.0-16.0) g/dL Hct 40.4 (36.0-46.0) % MCV 85.4 (80.0-98.0) fL MCH 28.8 (27.0-32.0) pg MCHC 33.7 (31.0-37.0) g/dL RDW Std Deviation 39.6 (28.0-62.0) fl RDW Coeff of All 13 (11.0-15.0) % Plt Count 311 (150-400) K/uL MPV 10.30 (7.40-12.00) fL Neut % (Auto) 85.5 H (48.0-80.0) % Lymph % (Auto) 11.1 L (16.0-40.0) % [place] % (Auto) 2.8 (0.0-15.0) % Eos % (Auto) 0.4 (0.0-7.0) % Baso % (Auto) 0.2 (0.0-1.5) % Neut # (Auto) 10.3 H (1.4-5.7) K/uL Lymph # (Auto) 1.3 (0.6-2.4) K/uL [place] # (Auto) 0.3 (0.0-0.8) K/uL Eos # (Auto) 0.1 (0.0-0.7) K/uL Baso # (Auto) 0.0 (0.0-0.1) K/uL Nucleated RBC % 0.0 /100WBC Nucleated RBCs # 0 K/uL Sodium 139 (136-145) mmol/L Potassium 3.2 L (3.5-5.1) mmol/L Chloride 100 (98-107) mmol/L Carbon Dioxide 31.3 (21.0-32.0) mmol/L BUN 21 H (7.0-18.0) mg/dL Creatinine 0.9 (0.6-1.0) mg/dL Est Cr Clr Drug Dosing 53.71 Estimated GFR (MDRD) > 60.0 ml/min Glucose 125 H (74-106) mg/dL Hemoglobin A1c 5.5 (4.5-6.2) % Calcium 8.6 (8.5-10.1) mg/dL Phosphorus 4.2 (2.6-4.7) mg/dL Magnesium 2.2 (1.8-2.4) mg/dL Total Bilirubin (0.2-1.0) mg/dL AST (15-37) IU/L ALT (14-63) IU/L Alkaline Phosphatase (46-116) U/L Troponin I (0.000-0.056) ng/mL Total Protein (6.4-8.2) g/dL Albumin (3.4-5.0) g/dL Globulin (2.6-4.0) g/dL Albumin/Globulin Ratio (0.9-1.6) Triglycerides (0-200) mg/dL Cholesterol (50-200) mg/dL LDL Cholesterol, Calc (60-180) mg/dL VLDL Cholesterol (5-55) mg/dL HDL Cholesterol (40-60) mg/dL Cholesterol/HDL Ratio (3.3-6.0) TSH 3rd Generation 2.38 (0.36-3.74) uIU/mL SARS-CoV-2 RNA (RT-PCR) (NEGATIVE) 03/28/20 03/28/20 Range/Units 06:03 10:10 WBC (4.0-11.0) K/uL RBC (4.30-5.90) M/uL Hgb (12.0-16.0) g/dL Hct (36.0-46.0) % MCV (80.0-98.0) fL MCH (27.0-32.0) pg MCHC (31.0-37.0) g/dL RDW Std Deviation (28.0-62.0) fl RDW Coeff of All (11.0-15.0) % Plt Count (150-400) K/uL MPV (7.40-12.00) fL Neut % (Auto) (48.0-80.0) % Lymph % (Auto) (16.0-40.0) % [place] % (Auto) (0.0-15.0) % Eos % (Auto) (0.0-7.0) % Baso % (Auto) (0.0-1.5) % Neut # (Auto) (1.4-5.7) K/uL Lymph # (Auto) (0.6-2.4) K/uL [place] # (Auto) (0.0-0.8) K/uL Eos # (Auto) (0.0-0.7) K/uL Baso # (Auto) (0.0-0.1) K/uL Nucleated RBC % /100WBC Nucleated RBCs # K/uL Sodium (136-145) mmol/L Potassium (3.5-5.1) mmol/L Chloride (98-107) mmol/L Carbon Dioxide (21.0-32.0) mmol/L BUN (7.0-18.0) mg/dL Creatinine (0.6-1.0) mg/dL Est Cr Clr Drug Dosing Estimated GFR (MDRD) ml/min Glucose (74-106) mg/dL Hemoglobin A1c (4.5-6.2) % Calcium (8.5-10.1) mg/dL Phosphorus (2.6-4.7) mg/dL Magnesium (1.8-2.4) mg/dL Total Bilirubin (0.2-1.0) mg/dL AST (15-37) IU/L ALT (14-63) IU/L Alkaline Phosphatase (46-116) U/L Troponin I (0.000-0.056) ng/mL Total Protein (6.4-8.2) g/dL Albumin (3.4-5.0) g/dL Globulin (2.6-4.0) g/dL Albumin/Globulin Ratio (0.9-1.6) Triglycerides 61 (0-200) mg/dL Cholesterol 198 (50-200) mg/dL LDL Cholesterol, Calc 141 (60-180) mg/dL VLDL Cholesterol 12 (5-55) mg/dL HDL Cholesterol 45 (40-60) mg/dL Cholesterol/HDL Ratio 4.4 (3.3-6.0) TSH 3rd Generation (0.36-3.74) uIU/mL SARS-CoV-2 RNA (RT-PCR) NEGATIVE (NEGATIVE) Result Diagrams: 03/28/20 06:03 03/28/20 06:03 Sepsis Event Note - Evaluation Sepsis Screening Result: No Definite Risk - Focused Exam Vital Signs: Vital Signs Temp Pulse Resp BP Pulse Ox 03/28/20 10:20 36.6 C 65 16 160/96 H 97 03/28/20 07:41 36.3 C 72 16 106/56 L 95 03/28/20 06:07 36.8 C 67 16 127/77 92 L 03/28/20 05:21 74 17 120/73 95 03/28/20 05:20 97 03/28/20 04:00 36.4 C 64 18 181/97 H 95 03/28/20 03:25 36.4 C 60 18 165/94 H 95 03/28/20 02:45 62 17 155/103 H 96 03/28/20 02:30 64 18 175/115 H 97 03/28/20 02:15 58 L 17 142/101 H 96 03/28/20 02:00 60 17 142/99 H 96 03/28/20 01:45 61 17 145/97 H 96 03/28/20 01:30 63 17 151/106 H 96 03/28/20 01:15 66 17 176/113 H 96 03/28/20 01:00 78 18 159/113 H 97 Date Exam was Performed: 03/28/20 Time Exam was Performed: 12:49 Consult PN Assessment/Plan (1) 7th nerve palsy SNOMED Code(s): 012918617 Code(s): G51.0 - WHIPPLE'S PALSY Current Visit: Yes Assessment:: Impression: Acute left facial weakness: Pattern of weakness most consistent with 7th nerve palsy. MRI brain negative for acute stroke. Neck pain, severe hypertension This would not directly be explained by Allen palsy, but by history, this is a recurrent problem, perhaps provoked by viral infection responsible for left 7th nerve palsy. MRA finding on L MCA artifact vs. focal stenosis. This would not explain symptoms, but CTA is recommended to assess for stenosis as this would be indication for antiplatelet and statin Recommendations: Course of steroids for Allen palsy with close BP monitoring Eye patch and drops for left eye. CTA head Problem List Initiated/Reviewed/Updated: Yes
[2020-03-28] MEDS: Carboxymethylcellulose Sodium 0.5% Ophth Soln 0.4 ML UD Box of 30 EYELF SCH ×3 (13:21→21:06)
[2020-03-28] MEDS ORDERED: Iopamidol 755 Mg/ML 100 ML Bottle IVPUSH ONE (13:23)
--- NOTE | 2020-03-28 13:41 | US ---
Renal arterial ultrasound: Duplex and color Doppler evaluation of the renal arteries was performed as well as multiple real-time images of the kidneys. Technologist's note: Very limited exam due to increased gas Comparison: No prior renal imaging. Findings: Maximum systolic velocity measurement within the right renal artery is proximally at 1.50 m/s. Maximum systolic velocity measurement within the left renal artery is mid at 1.23 m/s. Resistivity indices are normal within both kidneys. Kidneys show no hydronephrosis or discrete mass. Right kidney length is 10.6 cm and left kidney length is 10.9 cm. Impression: 1. Somewhat limited study as noted above. 2. Nothing appreciated to indicate hemodynamic significant stenosis within either renal artery. 3. Normal resistivity indices. Diagnostic code #2 This report was dictated in MDT
--- NOTE | 2020-03-28 13:46 | CT ---
CT angiogram of brain Technique: Multiple axial sections through the brain were obtained. Intravenous contrast was utilized. Multiple MIP images were obtained. Comparison: Prior MRI angiogram study performed earlier on same day (9:19 AM) Findings: Proximal left middle cerebral artery shows mild narrowing which does not appear as severe as seen on MR angiogram study. This narrowing is around 50 percent. Middle cerebral arteries as well as anterior and posterior cerebral arteries are otherwise patent. No focal stenosis is seen. Impression: 1. Mild narrowing of the proximal left middle cerebral artery appearing less severe than seen on MR angiogram study. Narrowing is around [address] exam. 2. Other portions of the CT angiogram of the brain appear unremarkable. Diagnostic code #2 This report was dictated in MDT
[2020-03-28] MEDS: Losartan 50 MG Tab PO SCH (15:08)
[2020-03-28] MEDS ORDERED: Ibuprofen 400 MG Tab PO PRN (16:13)
[2020-03-28] MEDS: Ciprofloxacin/Dexamethasone 0.3-0.1% Otic Susp 7.5 ML Bottle EARLF SCH ×2 (17:46→21:14)
[2020-03-28] MEDS ORDERED: atorvaSTATin 40 MG Tab PO SCH (21:00)
[2020-03-29] MEDS: Carboxymethylcellulose Sodium 0.5% Ophth Soln 0.4 ML UD Box of 30 EYELF SCH ×4 (01:32→12:18)
[2020-03-29 05:45] LABS: CARBON DIOXIDE,CO2 27.5 mmol/L (21.0-32.0); POTASSIUM,K 3.5 mmol/L (3.5-5.1)
[2020-03-29] MEDS ORDERED: predniSONE 20 MG Tab PO SCH (08:00)
[2020-03-29] MEDS: Losartan 50 MG Tab PO SCH (08:34)
[2020-03-29] MEDS: Aspirin 81 MG Tab.Chew PO SCH (08:35)
[2020-03-29] MEDS: Ciprofloxacin/Dexamethasone 0.3-0.1% Otic Susp 7.5 ML Bottle EARLF SCH (09:25)
--- NOTE | 2020-03-29 09:55 | PCM.DCSUM1 ---
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 This started earlier in the day and has progressively worsened. She denies fevers or chills, no chest pain or SOB. No abdominal pain or dysuria. No constipation or diarrhea. She reports mild R sided neck pain that has been present for 3 or so days. She denies visual concerns. Denies swallowing concerns. No lightheadedness of dizziness. No concerns with ambulation. She denies alcohol use, no recreational drug use and no tobacco use. In the ED CBC WNL, BUN 21, Cr 1.0, K+3.1, A1c 5.5 TSH 2.38, head CT negative. BP were elevated 240/140s she was given labetalol 20 mg x 2, BP improved to 180/90s She was placed on telemetry and admitted for hypertensive emergency, possible TIA or CVA. 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 No organisms found. Malignancy ruled out. Diagnosis: Stroke: No - Discharge Data Discharge Date: 03/29/20 Discharge Disposition: Home, Self-Care 01 Condition: Good - Referral to Home Health Primary Care Physician: Mima Guy MD - Discharge Diagnosis/Problem(s) (1) HTN (hypertension) SNOMED Code(s): 38343110 ICD Code: I10 - ESSENTIAL (PRIMARY) HYPERTENSION Status: Acute Current Visit: Yes (2) Hypokalemia SNOMED Code(s): 64329587 ICD Code: E87.6 - HYPOKALEMIA Status: Acute Current Visit: Yes (3) 7th nerve palsy SNOMED Code(s): 957919642 ICD Code: G51.0 - JOHNSON'S PALSY Status: Acute Current Visit: Yes - Patient Summary/Data Consults: Consultations 03/28/20 11:06 Consult to Speech Language Pathology [FINANCIAL SERVICES ASSOCIATE Evaluation and Treatment] [CONS] Routine 03/28/20 11:17 Consult to Physician [CONS] Routine Hospital Course: Admitting Diagnoses: L facial numbness TIA/CVA Hypertensive emergency Discharge Diagnoses: Landing palsy L MCA narrowing less than 50% HTN Dyslipidemia Lluvia was admitted with hypertensive emergency and suspected TIA/CVA. She was thoroughly evaluated for CVA with MRI brain and MRA head and neck. Along with ECHO. MRIs returned negative for CVA. Facial palsy noted, likely bells palsy. Dr Marrufo, Neurology, consulted and confirmed this. Recommended Prednisone x 1 week. MRA of head did show some narrowing of L MCA, CTA obtained to further evaluated due to concern with artifact. CTA revealed less than 50 % narrowing. Dr Marrufo recommended Statin therapy along with aspirin and good BP control. Lluvia was counseled on this and she understands. Due to severely elevated blood pressure on arrival 24 hour urine for catecholamines. Renal duplex obtained, which was negative for stenosis. She was restarted on Losartan and HCTZ, blood pressure has remained quite stable. She was counseled on being complaint on taking medications daily. She will be discharged home today, she was counseled on eye protection and artificial tears for moisture. 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 Eye patch to be worn at night and safety glasses during the day. She was counseled on when to expect improvement, that it could take up to 3 or more weeks. She will be discharged juan pablo with follow up with PCP and Dr Marrufo. She is to return to ED or clinic if concerns should arise. - Patient Instructions Diet: Heart Healthy Diet Activity: As Tolerated Driving: Do Not Drive Showering/Bathing: May Shower Notify Provider of: Fever, Increased Pain, Swelling and Redness, Drainage, Nausea and/or Vomiting Other/Special Instructions: Protect left eye, wear safety glasses during the day and eye patch at night. Eye drops to L eye frequently to keep eye moist - Discharge Plan *PRESCRIPTION DRUG MONITORING PROGRAM REVIEWED*: Not Applicable *COPY OF PRESCRIPTION DRUG MONITORING REPORT IN PATIENT DANNIE: Not Applicable Prescriptions/Med Rec: Aspirin 81 mg PO DAILY #30 tab.chew atorvaSTATin [Lipitor] 40 mg PO BEDTIME #30 tablet Carboxymethylcellulose Sodium [Refresh Plus 0.5%] 1 each EYELF Q4H 30 Days #1 box Ciprofloxacin/Dexamethasone [Ciprodex Otic Susp] 4 drop EARLF BID 7 Days #1 bottle Eye Patch 1 each MC DAILY #3 each predniSONE 40 - 60 mg PO WITHBREAKFAST #13 tablet Home Medications: Home Meds Losartan [Cozaar] 100 mg PO DAILY 03/28/20 [History] hydroCHLOROthiazide [Hydrochlorothiazide] 25 mg PO DAILY 03/28/20 [History] Aspirin 81 mg PO DAILY #30 tab.chew 03/29/20 [Rx] Carboxymethylcellulose Sodium [Refresh Plus 0.5%] 1 each EYELF Q4H 30 Days #1 box 03/29/20 [Rx] Ciprofloxacin/Dexamethasone [Ciprodex Otic Susp] 4 drop EARLF BID 7 Days #1 bottle 03/29/20 [Rx] Eye Patch 1 each MC DAILY #3 each 03/29/20 [Rx] atorvaSTATin [Lipitor] 40 mg PO BEDTIME #30 tablet 03/29/20 [Rx] predniSONE 40 - 60 mg PO WITHBREAKFAST #13 tablet 03/29/20 [Rx] Oxygen Therapy Mode: Room Air Patient Handouts: Johnson Palsy, Adult, Artificial Tears eye solution, Eye Patch, Adult Referrals: Naseem Tang [Other] Natalie Marrufo MD [Physician] - 04/17/20 8:00 am (Arrive 15 minutes early with a photo ID and insurance card. ) - Discharge Summary/Plan Comment DC Time >30 min.: No - Patient Data Vitals - Most Recent: Last Vital Signs Temp 98.2 F 03/29/20 07:59 Pulse 68 03/29/20 07:59 Resp 15 03/29/20 07:59 BP 130/76 03/29/20 08:34 Pulse Ox 97 03/29/20 07:59 Weight - Most Recent: 65.7 kg I&O - Last 24 hours: Intake & Output 03/28/20 03/29/20 03/29/20 22:59 06:59 14:59 Intake Total 1210 400 Output Total 1700 600 Balance -490 -200 Lab Results - Last 24 hrs: Laboratory Results - last 24 hr 03/28/20 03/29/20 03/29/20 Range/Units 10:10 04:38 04:38 WBC 9.63 (4.0-11.0) K/uL RBC 4.56 (4.30-5.90) M/uL Hgb 12.9 (12.0-16.0) g/dL Hct 39.6 (36.0-46.0) % MCV 86.8 (80.0-98.0) fL MCH 28.3 (27.0-32.0) pg MCHC 32.6 (31.0-37.0) g/dL RDW Std Deviation 41.9 (28.0-62.0) fl RDW Coeff of All 13 (11.0-15.0) % Plt Count 311 (150-400) K/uL MPV 10.40 (7.40-12.00) fL Neut % (Auto) 57.9 (48.0-80.0) % Lymph % (Auto) 32.7 (16.0-40.0) % [place] % (Auto) 5.8 (0.0-15.0) % Eos % (Auto) 3.2 (0.0-7.0) % Baso % (Auto) 0.4 (0.0-1.5) % Neut # (Auto) 5.6 (1.4-5.7) K/uL Lymph # (Auto) 3.2 H (0.6-2.4) K/uL [place] # (Auto) 0.6 (0.0-0.8) K/uL Eos # (Auto) 0.3 (0.0-0.7) K/uL Baso # (Auto) 0.0 (0.0-0.1) K/uL Nucleated RBC % 0.0 /100WBC Nucleated RBCs # 0 K/uL Sodium 140 (136-145) mmol/L Potassium 3.5 (3.5-5.1) mmol/L Chloride 105 (98-107) mmol/L Carbon Dioxide 27.5 (21.0-32.0) mmol/L BUN 21 H (7.0-18.0) mg/dL Creatinine 1.0 (0.6-1.0) mg/dL Est Cr Clr Drug Dosing 48.34 mL/min Estimated GFR (MDRD) 58.7 ml/min Glucose 99 (74-106) mg/dL Calcium 8.4 L (8.5-10.1) mg/dL SARS-CoV-2 RNA (RT-PCR) NEGATIVE (NEGATIVE) Med Orders - Current: Current Medications Acetaminophen (Tylenol) 650 mg PO Q4H PRN PRN Reason: Pain (Mild 1-3)/fever Last Admin: 03/28/20 15:08 Dose: 650 mg Artificial Tears (Refresh Plus 0.5%) 1 each EYELF Q4H [facility] Last Admin: 03/29/20 08:35 Dose: 1 each Aspirin (Aspirin) 81 mg PO DAILY [facility] Last Admin: 03/29/20 08:35 Dose: 81 mg Atorvastatin Calcium (Lipitor) 40 mg PO BEDTIME [facility] Last Admin: 03/28/20 21:13 Dose: 40 mg Ciprofloxacin/Dexamethasone (Ciprodex Otic Susp) 0 ml EARLF BID [facility] Last Admin: 03/29/20 09:25 Dose: 4 drop Ibuprofen (Motrin) 400 mg PO Q6H PRN PRN Reason: Pain Labetalol HCl (Normodyne) 10 mg IVPUSH Q4H PRN PRN Reason: Hypertension Losartan Potassium (Cozaar) 100 mg PO DAILY [facility] Last Admin: 03/29/20 08:34 Dose: 100 mg Ondansetron HCl (Zofran) 4 mg IVPUSH Q4H PRN PRN Reason: Nausea/Vomiting Prednisone (Prednisone) 60 mg PO WITHBREAKFAST [facility] Last Admin: 03/29/20 08:34 Dose: 60 mg Sodium Chloride (Saline Flush) 10 ml FLUSH ASDIRECTED PRN PRN Reason: Keep Vein Open Sodium Chloride (Saline Flush) 2.5 ml FLUSH ASDIRECTED PRN PRN Reason: Keep Vein Open Discontinued Medications Artificial Tears (Refresh Plus 0.5%) 1 each EYEBOTH BID PRN PRN Reason: Dry Eyes Last Admin: 03/28/20 05:35 Dose: 1 each Aspirin (Aspirin) 325 mg PO ONETIME ONE Stop: 03/28/20 01:01 Last Admin: 03/28/20 01:10 Dose: 325 mg Gadobenate Dimeglumine (Multihance) 20 ml IVPUSH ONETIME STA Stop: 03/28/20 09:14 Last Admin: 03/28/20 09:23 Dose: 13 ml Hydrochlorothiazide (Hydrochlorothiazide) 25 mg PO DAILY [facility] Hydromorphone HCl (Dilaudid) 1 mg IVPUSH ONETIME ONE Stop: 03/28/20 00:52 Last Admin: 03/28/20 01:01 Dose: 1 mg Labetalol HCl 100 mg/ Sodium (Chloride) 100 mls @ 30 mls/hr IV TITRATE [facility]; Protocol Iopamidol (Isovue-370 (76%)) 100 ml IVPUSH ONETIME ONE Stop: 03/28/20 13:24 Last Admin: 03/28/20 13:27 Dose: 100 ml Labetalol HCl (Normodyne) 20 mg IVPUSH ONETIME ONE; Protocol Stop: 03/28/20 00:10 Last Admin: 03/28/20 00:20 Dose: 20 mg Labetalol HCl (Normodyne) 20 mg IVPUSH ONETIME ONE; Protocol Stop: 03/28/20 00:52 Last Admin: 03/28/20 00:57 Dose: 20 mg Losartan Potassium (Cozaar) 100 mg PO DAILY JORDY Ondansetron HCl (Zofran) Confirm Administered Dose 4 mg .ROUTE .STK-MED ONE Stop: 03/28/20 01:18 Last Admin: 03/28/20 01:32 Dose: Not Given Ondansetron HCl (Zofran) 4 mg IVPUSH ONETIME ONE Stop: 03/28/20 01:28 Last Admin: 03/28/20 01:32 Dose: 4 mg Ondansetron HCl (Zofran) Confirm Administered Dose 4 mg .ROUTE .STK-MED ONE Stop: 03/28/20 01:53 Last Admin: 03/28/20 02:23 Dose: Not Given Ondansetron HCl (Zofran) 4 mg IVPUSH ONETIME ONE Stop: 03/28/20 01:56 Last Admin: 03/28/20 01:57 Dose: 4 mg Potassium Chloride (Klor-Con M20) 40 meq PO ONETIME ONE Stop: 03/28/20 07:59 Last Admin: 03/28/20 10:17 Dose: 40 meq - Exam General: Reports: Alert, Oriented, Cooperative, No Acute Distress Lungs: Reports: Clear to Auscultation, Normal Respiratory Effort Cardiovascular: Reports: Regular Rate, Regular Rhythm GI/Abdominal Exam: Normal Bowel Sounds, Soft, Non-Tender Neurological: Denies: Cranial Nerves Intact (L facial paralysis, no forehead crease noted)
--- NOTE | 2020-04-02 13:21 | ECHO ---
EXAM DATE: 03/28/20 PATIENT'S AGE: 49 The ECHO report can be seen in this patient's EMR (Electronic Medical Record) in the REPORTS section. The report has also been scanned into PACS. [facility]
== END 2020-03-29 15:00 | disposition home or self-care (01) | DRG 199 ==
LOC: MW.ED → MW.MS 01:34
PROVIDERS: ADMIT Student in an Organized Health Care Education/Training Program; ATTEND Student in an Organized Health Care Education/Training Program
DX: I16.1 Hypertensive emergency (principal); G51.0 Bell's palsy; I66.02 Occlusion and stenosis of left middle cerebral artery; E78.5 Hyperlipidemia, unspecified; I10 Essential (primary) hypertension; Z20.828 Contact with and (suspected) exposure to other viral communicable diseases; E87.6 Hypokalemia; T65.831A Toxic effect of fiberglass, accidental (unintentional), initial encounter; J68.4 Chronic respiratory conditions due to chemicals, gases, fumes and vapors; Z79.899 Other long term (current) drug therapy
CPT/HCPCS: 36415; 70450; 70450-26; 70496; 70496-26; 70544; 70544-26; 70548; 70548-26; 70553; 70553-26; 80048; 80053; 80061; 82384; 83036; 83735; 83835; 84100; 84443; 84484; 85025; 92507-GN; 92522-GN; 93005; 93306; 93975; 93975-26; 96374; 96375; 96376; 99283; 99285-25; A9270-GY; A9577; J1170; J2405; J3490; Q9967; U0002

== ENCOUNTER 2023-04-17 10:48 | Day surgery (SDC) | payer BC ==
[~2023-04-17 10:48] MED LIST: Lactated Ringers 1,000 ML IV SCH; Propofol 200 MG/20 ML SDV ONE
== END 2023-04-17 14:00 | disposition home or self-care (01) ==
LOC: MW.SDS 10:48
PROVIDERS: ATTEND Surgery
DX: D12.3 Benign neoplasm of transverse colon (principal); D12.6 Benign neoplasm of colon, unspecified; K64.4 Residual hemorrhoidal skin tags; Z79.82 Long term (current) use of aspirin; Z79.1 Long term (current) use of non-steroidal anti-inflammatories (NSAID); K21.9 Gastro-esophageal reflux disease without esophagitis; Z79.899 Other long term (current) drug therapy; Z80.0 Family history of malignant neoplasm of digestive organs; Z98.51 Tubal ligation status
CPT/HCPCS: 45380; 45385; J2704; J7120

== ENCOUNTER 2025-01-23 13:42 | Observation (INO) | payer BC ==
[2025-01-23] MEDS ORDERED: Sodium Chloride 0.9% 20 ML SDV IV PRN (14:18)
[2025-01-23] MEDS ORDERED: Sodium Chloride 0.9% 10 ML Syringe FLUSH PRN (14:18)
[2025-01-23] MEDS ORDERED: Sodium Chloride 0.9% 2.5 ML Syringe FLUSH PRN (14:18)
[2025-01-23 14:29] LABS: BASOPHILS ABSOLUTE AUTO 0.06 K/uL (0.00-0.20); BASOPHILS PERCENT AUTO 0.9 % (0.0-1.0); EOSINOPHILS ABSOLUTE AUTO 0.29 K/uL (0.00-0.45); EOSINOPHILS PERCENT AUTO 4.4 % (0.0-6.0); HEMATOCRIT 42.3 % (37.0-47.0); HEMOGLOBIN 14.8 g/dL (12.0-16.0); IMMATURE GRAN ABSOLUTE AUTO 0.01 K/uL (0.00-0.05); IMMATURE GRAN PERCENT AUTO 0.2 % (0.0-0.4); LYMPHOCYTES ABSOLUTE AUTO 2.19 K/uL (1.00-4.80); LYMPHOCYTES PERCENT AUTO 33.2 % (24.0-44.0); MEAN CORPUSCULAR HEMOGLOBIN 28.9 pg (28.0-32.0); MEAN CORPUSCULAR VOLUME 82.6 fL (83.0-99.0); MONOCYTES ABSOLUTE AUTO 0.38 K/uL (0.00-0.80); MONOCYTES PERCENT AUTO 5.8 % (0.0-8.0); NEUTROPHILS ABSOLUTE AUTO 3.66 K/uL (1.80-7.70); NEUTROPHILS PERCENT AUTO 55.5 % (41.0-71.0); PLATELET COUNT,PLT 278 K/uL (150-400); RED BLOOD CELL COUNT 5.12 M/uL (4.10-5.30); WHITE BLOOD CELL COUNT,WBC 6.59 K/uL (3.9-11.3)
[2025-01-23 14:57] LABS: A/G RATIO 0.9 (0.9-1.6); ALANINE AMINOTRANSFERASE,ALT 62 IU/L (14-63); ALBUMIN 3.8 g/dL (3.4-5.0); ALKALINE PHOSPHATASE 84 U/L (46-116); ASPARTATE AMNIOTRANSFERASE,AST 29 IU/L (15-37); BILIRUBIN TOTAL 0.4 mg/dL (0.2-1.0); BLOOD UREA NITROGEN,BUN 17 mg/dL (7.0-18.0); CALCIUM 9.4 mg/dL (8.5-10.1); CARBON DIOXIDE,CO2 27.7 mmol/L (21.0-32.0); CHLORIDE,CL 103 mmol/L (98-107); CREATININE 0.7 mg/dL (0.6-1.0); EST CRCL DRUG DOSING (CG) 65.23 mL/min; GLUCOSE RANDOM 101 mg/dL (74-106); POTASSIUM,K 3.6 mmol/L (3.5-5.1); PROTEIN TOTAL,TP 7.9 g/dL (6.4-8.2); SODIUM,NA 142 mmol/L (136-145)
[2025-01-23 14:59] LABS: ESTIMATED GFR 102 mL/min (>60)
[2025-01-23] MEDS: hydrALAZINE 20 MG/ML SDV IVPUSH ONE ×3 (15:59→17:20)
[2025-01-23 16:26] LABS: APPEARANCE,URINE CLEAR; BILIRUBIN,URINE NEGATIVE (NEGATIVE); COLOR,URINE YELLOW; GLUCOSE,URINE NEGATIVE (NEGATIVE); KETONES,URINE NEGATIVE (NEGATIVE); LEUKOCYTE ESTERASE,URINE NEGATIVE (NEGATIVE); NITRITE,URINE NEGATIVE (NEGATIVE); OCCULT BLOOD,URINE NEGATIVE (NEGATIVE); PROTEIN,URINE NEGATIVE (NEGATIVE); UROBILINOGEN,URINE 0.2 EU/dL (<2.0)
[2025-01-23] MEDS: cloNIDine 0.1 MG Tab PO ONE (17:05)
[2025-01-23] MEDS ORDERED: Ondansetron 4 MG Tab.DIS PO PRN (20:01)
[2025-01-23] MEDS ORDERED: Docusate Sodium 100 MG Cap PO PRN (20:01)
[2025-01-23] MEDS ORDERED: Polyethylene Glycol 3350 Powder 17 GM Packet PO PRN (20:01)
[2025-01-23] MEDS ORDERED: hydrALAZINE 20 MG/ML SDV IVPUSH PRN (20:29)
[2025-01-23] MEDS ORDERED: Sodium Chloride 0.9% 1,000 ML IV SCH (20:30)
[2025-01-23] MEDS: Acetaminophen 325 MG Tab PO PRN (21:17)
[2025-01-23] MEDS ORDERED: Ondansetron 4 MG/2 ML SDV IVPUSH PRN (21:24)
[2025-01-23] MEDS: Ondansetron 4 MG/2 ML SDV IVPUSH SCH (23:01)
[2025-01-24 06:03] LABS: BASOPHILS ABSOLUTE AUTO 0.03 K/uL (0.00-0.20); BASOPHILS PERCENT AUTO 0.4 % (0.0-1.0); EOSINOPHILS ABSOLUTE AUTO 0.42 K/uL (0.00-0.45); EOSINOPHILS PERCENT AUTO 6.1 % (0.0-6.0); HEMATOCRIT 41.3 % (37.0-47.0); HEMOGLOBIN 13.9 g/dL (12.0-16.0); IMMATURE GRAN ABSOLUTE AUTO 0.02 K/uL (0.00-0.05); IMMATURE GRAN PERCENT AUTO 0.3 % (0.0-0.4); LYMPHOCYTES PERCENT AUTO 33.6 % (24.0-44.0); MEAN CORPUSCULAR HEMOGLOBIN 28.4 pg (28.0-32.0); MEAN CORPUSCULAR HGB CONC 33.7 g/dL (32.0-36.0); MEAN CORPUSCULAR VOLUME 84.3 fL (83.0-99.0); MEAN PLATELET VOLUME 10.2 fL (9.4-12.3); MONOCYTES ABSOLUTE AUTO 0.47 K/uL (0.00-0.80); MONOCYTES PERCENT AUTO 6.9 % (0.0-8.0); NEUTROPHILS ABSOLUTE AUTO 3.61 K/uL (1.80-7.70); NEUTROPHILS PERCENT AUTO 52.7 % (41.0-71.0); PLATELET COUNT,PLT 271 K/uL (150-400); WHITE BLOOD CELL COUNT,WBC 6.85 K/uL (3.9-11.3)
[2025-01-24 06:36] LABS: A/G RATIO 0.9 (0.9-1.6); ALBUMIN 3.5 g/dL (3.4-5.0); BILIRUBIN TOTAL 0.6 mg/dL (0.2-1.0); C-REACTIVE PROTEIN 0.19 mg/dL (<0.3); CALCIUM 9.2 mg/dL (8.5-10.1); CARBON DIOXIDE,CO2 25.7 mmol/L (21.0-32.0); CREATININE 0.9 mg/dL (0.6-1.0); EST CRCL DRUG DOSING (CG) 50.73 mL/min; MAGNESIUM 2.2 mg/dL (1.8-2.4); PHOSPHORUS 5.4 mg/dL (2.6-4.7); POTASSIUM,K 3.3 mmol/L (3.5-5.1); PROTEIN TOTAL,TP 7.2 g/dL (6.4-8.2)
[2025-01-24] MEDS: Potassium Chloride 10% 20 MEQ/15 ML Soln 15 ML UD Cup PO ONE (08:50)
[2025-01-24] MEDS ORDERED: Potassium Chloride 10 MEQ Tab.ER PO SCH (09:00)
[2025-01-24] MEDS ORDERED: Losartan 25 MG Tab PO SCH (09:00)
[2025-01-24] MEDS ORDERED: Hydrochlorothiazide 12.5 MG Cap PO SCH (09:00)
== END 2025-01-24 13:10 | disposition home or self-care (01) ==
LOC: MW.ED 13:42 → MW.MS 18:24
PROVIDERS: ADMIT Family Medicine; ATTEND Family Medicine
DX: I16.0 Hypertensive urgency (principal); M25.532 Pain in left wrist; M25.531 Pain in right wrist; M25.572 Pain in left ankle and joints of left foot; M25.571 Pain in right ankle and joints of right foot; E66.9 Obesity, unspecified; Z68.30 Body mass index [BMI] 30.0-30.9, adult; Z79.82 Long term (current) use of aspirin; Z79.899 Other long term (current) drug therapy
CPT/HCPCS: 36415; 70450; 71046; 80053; 81003; 83735; 84100; 84484; 85025; 85652; 86140; 93005; 96374; 96376; 99285; A9270; J0360; 93010; G0378

== ENCOUNTER 2025-02-20 13:31 | Emergency (ER) | payer SELFPAY ==
[2025-02-20] MEDS: Acetaminophen 500 MG Tab PO ONE (14:42)
[2025-02-20] MEDS: Ibuprofen 800 MG Tab PO ONE (14:42)
== END 2025-02-20 14:55 | disposition home or self-care (01) ==
LOC: MW.ED 13:31
DX: S93.401A Sprain of unspecified ligament of right ankle, initial encounter (principal); I10 Essential (primary) hypertension; E66.9 Obesity, unspecified; Z68.28 Body mass index [BMI] 28.0-28.9, adult; Z79.82 Long term (current) use of aspirin; Z79.899 Other long term (current) drug therapy; Z75.8 Other problems related to medical facilities and other health care; W00.0XXA Fall on same level due to ice and snow, initial encounter
CPT/HCPCS: 73610; 73630; 99283; A9270

== ENCOUNTER 2025-03-10 10:53 | Day surgery (SDC) | payer OTHER ==
[2025-03-10] MEDS: Lactated Ringers 1,000 ML IV SCH (12:10)
[2025-03-10] MEDS ORDERED: Propofol 200 MG/20 ML SDV ONE (12:40)
[2025-03-10] MEDS ORDERED: Lidocaine 2% 5 ML SDV ONE (12:40)
== END 2025-03-10 14:30 | disposition home or self-care (01) ==
LOC: MW.SDS 10:53
PROVIDERS: ATTEND Surgery
DX: Z12.11 Encounter for screening for malignant neoplasm of colon (principal); D12.2 Benign neoplasm of ascending colon; K62.1 Rectal polyp; K64.4 Residual hemorrhoidal skin tags; Z86.0100 Personal history of colon polyps, unspecified; Z80.0 Family history of malignant neoplasm of digestive organs; K21.9 Gastro-esophageal reflux disease without esophagitis; E78.00 Pure hypercholesterolemia, unspecified; I10 Essential (primary) hypertension; Z79.899 Other long term (current) drug therapy; Z91.041 Radiographic dye allergy status
CPT/HCPCS: 45380; J2003; J2704; J7120; 00811